=== PATIENT | female | born 1965 | race Caucasian/White ===

== ENCOUNTER 2020-08-14 03:42 | Emergency (ER) | payer BC, OTHER ==
[~2020-08-14 03:42] MED LIST: ASPIR 8181 MG PO; VISTARIL 25 MG25 MG PO; ZESTRIL2.5 MG PO
[2020-08-14 04:43] LABS: HEMOGLOBIN 14.3 gm/dl (12.3-15.3); RED BLOOD COUNT 5.01 M/UL (4.00-5.10); WHITE BLOOD COUNT 6.8 K/UL (4.5-11.0)
[2020-08-14 07:37] LABS: BUN/CREATININE RATIO 17 (0-10)
== END 2020-08-14 10:40 | disposition home or self-care (01) ==
LOC: ER1 03:42
PROVIDERS: Emergency Medicine
DX: I10 Essential (primary) hypertension (principal); R91.1 Solitary pulmonary nodule; R06.02 Shortness of breath; Z79.899 Other long term (current) drug therapy; Z88.0 Allergy status to penicillin
CPT/HCPCS: 71045; 80053; 82550; 82553; 83735; 84439; 84443; 84484; 85025; 85379; 93005; 99285; J7120; Q9967

== ENCOUNTER → 2020-09-09 | Outpatient (CLI) | payer BC, OTHER | LOC: HEART 5 08:13 | DX: R00.0 Tachycardia, unspecified (principal) ==

== ENCOUNTER → 2020-09-30 | Outpatient (CLI) | payer BC, OTHER | LOC: HEART 5 10:08 | DX: R20.9 Unspecified disturbances of skin sensation (principal) ==

== ENCOUNTER → 2021-09-02 | Outpatient (CLI) | payer BC, OTHER | LOC: HEART 5 14:05 | DX: R09.02 Hypoxemia (principal) | CPT/HCPCS: 94010; 94729 ==

== ENCOUNTER → 2021-09-16 | Outpatient (CLI) | payer BC | LOC: KOH-I 14:30 | DX: G47.34 Idiopathic sleep related nonobstructive alveolar hypoventilation (principal); R91.8 Other nonspecific abnormal finding of lung field | CPT/HCPCS: 71250 ==

== ENCOUNTER → 2021-10-03 | Outpatient (CLI) | payer BC | LOC: SLEEP 12:14 | DX: G47.34 Idiopathic sleep related nonobstructive alveolar hypoventilation (principal); R06.83 Snoring | CPT/HCPCS: 95810 ==